=== PATIENT | male | born 1950 | race Caucasian/White ===

== ENCOUNTER 2022-07-21 19:45 | Emergency (ER) | payer OTHER, MEDICARE ==
[~2022-07-21] VITALS: Ht 177.8 cm; Wt 108.9 kg
[2022-07-21 19:55] VITALS: BP_SYST 133
[2022-07-21 21:14] VITALS: BP_SYST 132
== END 2022-07-21 21:14 | disposition home or self-care (01) ==
LOC: SED 19:45
DX: I10 Essential (primary) hypertension (principal); R04.0 Epistaxis; J44.9 Chronic obstructive pulmonary disease, unspecified; E11.9 Type 2 diabetes mellitus without complications
CPT/HCPCS: 99281

== ENCOUNTER 2023-03-07 11:12 | Inpatient (IN) | payer OTHER, MEDICARE ==
[~2023-03-07] VITALS: Ht 177.8 cm; Wt 103.0 kg
[~2023-03-07 11:12] MED LIST: ALPR0.5T PO; AMLO5TAB4 PO; BACL20TA PO; BUPR100T13 PO; CARV12.548 PO; CLON0.1T PO; FLO44 INH; HYDR-3925 PO; INSU100V11 SQ; ISOS30TA85 PO; LEVO-62 PO; LINA290C PO; LIP40 PO; NATE120T PO; NEU300 PO; NITR0.4T47 SL; OMEP40CA20 PO; PHEN-726 PO; RIVA10TA PO; TAMS-11 PO
[2023-03-07 11:18] VITALS: BP_SYST 135; PULSE 106; RESP 20; TEMP 97.3; O2SAT 97
[2023-03-07 11:41] LABS: BASOPHILS % (AUTO) 0.5 % (0.0-2.0); EOSINOPHILS # (AUTO) 0.3 K/uL (0.0-0.4); EOSINOPHILS % (AUTO) 3.4 % (0.0-4.0); HEMATOCRIT 47.1 % (36-54); HEMOGLOBIN 15.1 g/dL (14.0-18.0); LYMPHOCYTES # (AUTO) 0.5 K/uL (1.0-5.5); LYMPHOCYTES % (AUTO) 5.8 % (20.5-51.5); MEAN CORPUSCULAR HEMOGLOBIN 28 pg (27-31); MEAN CORPUSCULAR HGB CONC 32 % (32-36); MEAN CORPUSCULAR VOLUME 87 fL (79.0-98.0); MONOCYTES # (AUTO) 0.9 K/uL (0.0-1.0); MONOCYTES % (AUTO) 10.7 % (1.7-9.3); NEUTROPHILS # (AUTO) 6.5 K/uL (1.8-7.7); NEUTROPHILS % (AUTO) 79.6 % (40.0-70.0); PLATELET COUNT (AUTO) 189 K/uL (130-430); RED BLOOD CELL COUNT(AUTO) 5.42 MIL/uL (4.2-6.2); RED CELL DISTRIBUTION WIDTH 15.9 % (9.0-15.0); WHITE BLOOD COUNT (AUTO) 8.2 K/uL (4.8-10.8)
[2023-03-07 11:55] LABS: ANION GAP 12 (5-15); CALCIUM 9.9 mg/dL (8.4-11.0); CARBON DIOXIDE 25 mmol/L (23-29); CHLORIDE 101 mmol/L (98-107); CREATININE 1.46 mg/dL (0.55-1.30); GLUCOSE 122 mg/dL (74-106); POTASSIUM 3.9 mmol/L (3.5-5.1); SODIUM SERUM 138 mmol/L (136-145); UREA NITROGEN, BLOOD 16 mg/dL (8-21)
[2023-03-07 12:02] LABS: ALANINE AMINOTRANSFERASE 26 U/L (12-78); ALBUMIN 3.9 g/dL (3.4-4.8); ASPARTATE AMINOTRANSFERASE 19 U/L (10-37); BILIRUBIN,DIRECT 0.2 mg/dL (0.0-0.3); TOTAL BILIRUBIN 0.6 mg/dL (0.0-1.0); TOTAL PROTEIN, SERUM 7.8 g/dL (6.4-8.3)
[2023-03-07] MEDS ORDERED: KETOROLAC TROMETHAMINE 60 MG/2 ML VIAL IM ONE (14:31)
[2023-03-07 15:33] LABS: COVID19 ANTIGEN SOFIA FIA NEGATIVE (NEGATIVE)
[2023-03-07 15:34] LABS: INFLUENZA TYPE A Negative (NEGATIVE); INFLUENZA TYPE B NEGATIVE (NEGATIVE)
[2023-03-07 16:10] VITALS: BP_SYST 128; PULSE 96; RESP 18; TEMP 97.5; O2SAT 97
[2023-03-07] MEDS ORDERED: NALOXONE HCL 2 MG/2 ML SYR IVP PRN (16:30)
[2023-03-07] MEDS ORDERED: HYDROcodone/ACETAMIN 5-325 MG TAB (NORCO/ VICODIN) PO PRN (16:30)
[2023-03-07] MEDS ORDERED: INSULIN REGULAR, HUMAN 100 UNITS/ML, 3 ML VIAL (humuLIN R) SUBCUT PRN (16:30)
[2023-03-07] MEDS ORDERED: cloNIDine HCL 0.1 MG TABLET PO PRN (16:30)
[2023-03-07] MEDS ORDERED: NITROGLYCERIN 0.4 MG TAB.SUBL SL SCH (16:30)
[2023-03-07] MEDS ORDERED: LevALBUTEROL HCL 1.25 MG/0.5 ML *CONC.* VIAL.NEB (XOPENEX CONC.) INH PRN (16:30)
[2023-03-07 17:16] VITALS: PULSE 96; O2SAT 97
[2023-03-07 19:00] VITALS: BP_SYST 110; PULSE 85; RESP 12; TEMP 98.1; O2SAT 96
[2023-03-07] MEDS ORDERED: CLOPIDOGREL BISULFATE 75 MG TABLET PO ONE (19:00)
[2023-03-07 20:00] VITALS: BP_SYST 110; PULSE 85; RESP 12; TEMP 98.1; O2SAT 96
[2023-03-07] MEDS ORDERED: INSULIN GLARGINE 100 UNITS/ML, 10 ML VIAL SQ SCH (21:00)
[2023-03-07] MEDS ORDERED: FLUTICASONE 44 mcg/ACTUATION MDI AER.W.ADAP INH SCH (21:00)
[2023-03-07] MEDS: LevALBUTEROL HCL 1.25 MG/0.5 ML *CONC.* VIAL.NEB (XOPENEX CONC.) INH SCH (21:03)
[2023-03-07] MEDS: GABAPENTIN 300 MG CAPSULE PO SCH (21:26)
[2023-03-07] MEDS: ALPRAZolam 0.25 MG TABLET PO SCH (21:26)
[2023-03-07] MEDS: ISOSORBIDE MONONITRATE 30 MG TAB.ER.24H PO SCH (21:27)
[2023-03-07] MEDS: BENZONATATE 100 MG CAPSULE (TESSALON) PO SCH (21:27)
[2023-03-07] MEDS: CARVEDILOL 12.5 MG TABLET (COREG) PO SCH (21:28)
[2023-03-07] MEDS: BACLOFEN 10 MG TABLET PO SCH (21:28)
[2023-03-07] MEDS: buPROPion HCL 100 MG TABLET PO SCH (21:28)
[2023-03-07 22:04] VITALS: O2SAT 94
[2023-03-08] MEDS: LevALBUTEROL HCL 1.25 MG/0.5 ML *CONC.* VIAL.NEB (XOPENEX CONC.) INH SCH ×3 (01:00→12:12)
[2023-03-08] MEDS ORDERED: NS 250 ML IV ONE (03:45)
[2023-03-08 06:35] LABS: ANION GAP 10 (5-15); CALCIUM 9.2 mg/dL (8.4-11.0); CARBON DIOXIDE 26 mmol/L (23-29); CHLORIDE 99 mmol/L (98-107); CREATININE 1.42 mg/dL (0.55-1.30); GLUCOSE 116 mg/dL (74-106); POTASSIUM 3.6 mmol/L (3.5-5.1); SODIUM SERUM 135 mmol/L (136-145); UREA NITROGEN, BLOOD 17 mg/dL (8-21)
[2023-03-08 06:42] LABS: ALANINE AMINOTRANSFERASE 19 U/L (12-78); ALBUMIN 3.2 g/dL (3.4-4.8); ASPARTATE AMINOTRANSFERASE 14 U/L (10-37); CHOLESTEROL 96 mg/dL (<200); HDL CHOLESTEROL 45 mg/dL (>45); TOTAL BILIRUBIN 0.6 mg/dL (0.0-1.0); TOTAL PROTEIN, SERUM 6.5 g/dL (6.4-8.3); TRIGLYCERIDES 194 mg/dL (30-150)
[2023-03-08 07:50] VITALS: O2SAT 96
[2023-03-08] MEDS: NATEGLINIDE 120 MG TABLET PO SCH ×2 (08:00→13:08)
[2023-03-08 08:30] VITALS: BP_SYST 100; PULSE 94; RESP 17; TEMP 97.4; O2SAT 96
[2023-03-08] MEDS ORDERED: PANTOPRAZOLE SODIUM 40 MG TAB PO SCH (09:00)
[2023-03-08] MEDS ORDERED: ATORVASTATIN 20 MG TABLET PO SCH (09:00)
[2023-03-08] MEDS ORDERED: LINACLOTIDE 290 MCG PO SCH ×2 (09:00)
[2023-03-08] MEDS: buPROPion HCL 100 MG TABLET PO SCH (09:00)
[2023-03-08] MEDS ORDERED: TAMSULOSIN HCL 0.4 MG CAP PO SCH (09:00)
[2023-03-08] MEDS ORDERED: RIVAROXABAN 10 MG TABLET PO SCH ×2 (09:00)
[2023-03-08] MEDS ORDERED: CLOPIDOGREL BISULFATE 75 MG TABLET PO SCH (09:00)
[2023-03-08] MEDS ORDERED: TRELEGY ELLIPTA INH SCH (09:00)
[2023-03-08] MEDS: GABAPENTIN 300 MG CAPSULE PO SCH (10:37)
[2023-03-08] MEDS: BACLOFEN 10 MG TABLET PO SCH (10:38)
[2023-03-08] MEDS: ALPRAZolam 0.25 MG TABLET PO SCH (10:38)
[2023-03-08] MEDS: BENZONATATE 100 MG CAPSULE (TESSALON) PO SCH (10:39)
[2023-03-08] MEDS: CARVEDILOL 12.5 MG TABLET (COREG) PO SCH (10:39)
[2023-03-08] MEDS: ISOSORBIDE MONONITRATE 30 MG TAB.ER.24H PO SCH (10:41)
[2023-03-08 12:12] VITALS: O2SAT 94
[2023-03-08 15:22] VITALS: BP_SYST 115; PULSE 90; RESP 16; TEMP 98; O2SAT 97
== END 2023-03-08 16:00 | disposition home or self-care (01) | DRG 313 ==
LOC: SED 11:12 → STU 13:28
PROVIDERS: ADMIT Family Medicine; ATTEND Family Medicine
PROC: 5A09357 Assistance with Respiratory Ventilation, Less than 24 Consecutive Hours, Continuous Positive Airway Pressure (ICD-10-PCS; principal; 2023-03-07)
PROC: 5A09357 Assistance with Respiratory Ventilation, Less than 24 Consecutive Hours, Continuous Positive Airway Pressure (ICD-10-PCS; 2023-03-08)
DX: R07.89 Other chest pain (principal); I10 Essential (primary) hypertension; J44.89 Other specified chronic obstructive pulmonary disease; I25.10 Atherosclerotic heart disease of native coronary artery without angina pectoris; E78.00 Pure hypercholesterolemia, unspecified; M54.9 Dorsalgia, unspecified; F32.A Depression, unspecified; F41.9 Anxiety disorder, unspecified; N40.0 Benign prostatic hyperplasia without lower urinary tract symptoms; Z20.822 Contact with and (suspected) exposure to COVID-19; E11.42 Type 2 diabetes mellitus with diabetic polyneuropathy; G89.29 Other chronic pain; Z79.02 Long term (current) use of antithrombotics/antiplatelets; Z79.01 Long term (current) use of anticoagulants; Z95.5 Presence of coronary angioplasty implant and graft; Z87.891 Personal history of nicotine dependence; Z86.718 Personal history of other venous thrombosis and embolism; Z79.899 Other long term (current) drug therapy; Z79.84 Long term (current) use of oral hypoglycemic drugs
CPT/HCPCS: 36415; 71045; 80048; 80053; 80061; 80076; 82962; 83880; 84484; 85025; 93005; 93306; 93970; 94640; 94760; 99285; G0378; J1815; J1885; J7612